=== PATIENT | female | born 1965 | race Asian ===

== ENCOUNTER 2018-08-29 10:08 | Emergency (ER) | payer BC ==
[~2018-08-29] VITALS: Ht 160 cm; Wt 65.9 kg
[2018-08-29 10:19] VITALS: Ht 160 cm; Wt 65.9 kg
[2018-08-29] MEDS ORDERED: DIPHENHYDRAMINE 50 MG INJ IV STA (10:19)
[2018-08-29] MEDS ORDERED: SOD CHLORIDE 0.9% 500 ML IV STA (10:19)
[2018-08-29] MEDS ORDERED: ONDANSETRON 4 MG INJ IV STA (10:19)
[2018-08-29] MEDS ORDERED: MECL-77 PO (11:28)
[2018-08-29] MEDS ORDERED: ONDA4TAB8 PO (11:28)
--- NOTE | 2018-08-29 11:31 | ERD ---
ER Documentation Chief Complaint Chief Complaint weak, dizzy & syncope this am HPI 53-year-old female presents the emergency department by paramedics complaining of dizziness and nausea. Patient was in her usual state of health until this morning at which time she awoke with vertiginous dizziness. She reported no headache, focal weakness or numbness or difficulty speaking. The dizziness made her significantly nauseous. She was unable to stand and called the paramedics. I have reviewed the realtime court reporter pre-hospital care. Pre-hospital vital signs were reviewed. Pre-hospital diagnostic tests were reviewed. Upon arrival, patient has no acute complaints at this time. ROS All systems reviewed and are negative except as per history of present illness. Medications Home Meds Active Scripts Ondansetron Hcl* (Zofran*) 4 Mg Tablet, 4 MG PO Q8H PRN for NAUSEA AND/OR VOMITING, #30 TAB Prov:GREGORIO TOBIN 08/29/18 Meclizine Hcl* (Meclizine Hcl*) 25 Mg Tablet, 25 MG PO Q8H PRN for DIZZINESS, #20 TAB Prov:GREGORIO TOBIN 08/29/18 Allergies Allergies: Coded Allergies: No Known Allergy (Unverified , 08/29/18) PMhx/Soc Medical and Surgical Hx: pt denies Medical Hx, pt denies Surgical Hx Hx Alcohol Use: No Hx Substance Use: No Hx Tobacco Use: No Smoking Status: Never smoker FmHx Noncontributory for chief complaint Physical Exam Vitals Vital Signs Date Temp Pulse Resp B/P (MAP) Pulse Ox O2 O2 Flow FiO2 Time Delivery Rate 08/29/18 69 18 147/77 99 Room Air 11:00 (100) 08/29/18 97.9 64 19 179/83 97 10:19 (115) Physical Exam GENERAL: The patient is well developed and appropriate for usual state of health in no apparent distress HEENT: Pupils equal, round, and reactive to light. EOMI. There is no scleral icterus. NECK: C-spine is soft and supple, there is no meningismus. There is no cervical lymphadenopathy. LUNGS: Clear to auscultation bilaterally. There are no rales, wheezes or rhonch i. HEART: Regular rate and rhythm, no murmurs, clicks, rubs or gallops. ABDOMEN: Soft, non-tender, non-distended. There are bowel sounds in all four quadrants. No rebound or guarding. EXTREMITIES: There is no peripheral cyanosis or edema. No focal swelling or erythema. NEURO: The patient moves all four extremities with 5/5 strength. Cranial nerves II - XII are intact. Normal gait. Alert and oriented. Finger to nose is normal bilaterally SKIN: There is no apparent rash or petechiae. HEME/LYMPHATIC: There is no evidence of excessive bruising or lymphedema. PSYCHIATRIC: The patient does not appear anxious or depressed. Result Diagram: 08/29/18 1025 08/29/18 1025 Results 24 hrs Laboratory Tests Test 08/29/18 10:15 08/29/18 10:25 Bedside Glucose 117 mg/dL White Blood Count 9.3 10^3/ul Red Blood Count 5.10 10^6/ul Hemoglobin 14.7 g/dl Hematocrit 44.8 % Mean Corpuscular Volume 87.8 fl Mean Corpuscular Hemoglobin 28.8 pg Mean Corpuscular Hemoglobin Concent 32.8 g/dl Red Cell Distribution Width 11.8 % Platelet Count 239 10^3/UL Mean Platelet Volume 10.3 fl Immature Granulocytes % 0.200 % Neutrophils % 81.8 % Lymphocytes % 12.8 % Monocytes % 4.1 % Eosinophils % 0.9 % Basophils % 0.2 % Nucleated Red Blood Cells % 0.0 /100WBC Immature Granulocytes # 0.020 10^3/ul Neutrophils # 7.6 10^3/ul Lymphocytes # 1.2 10^3/ul Monocytes # 0.4 10^3/ul Eosinophils # 0.1 10^3/ul Basophils # 0.0 10^3/ul Nucleated Red Blood Cells # 0.0 10^3/ul Sodium Level 141 mmol/L Potassium Level 3.8 mmol/L Chloride Level 105 mmol/L Carbon Dioxide Level 28 mmol/L Anion Gap 8 Blood Urea Nitrogen 13 mg/dl Creatinine 0.46 mg/dl Est Glomerular Filtrat Rate mL/min > 60 mL/min Glucose Level 124 mg/dl Calcium Level 9.8 mg/dl Troponin I < 0.012 ng/ml Current Medications Medications Dose Sig/Kimmy Start Time Status Last (Trade) Ordered Route PRN Stop Time Admin Dose Reason Admin Sodium 500 ml @ Q1H STAT 08/29/18 DC 08/29/18 Chloride 500 mls/hr IV 10: 10:24 08/29/18 11:18 Ondansetron 4 mg ONCE STAT 08/29/18 DC 08/29/18 HCl (Zofran IV 10: 10:24 Inj) 08/29/18 10:21 25 mg ONCE STAT 08/29/18 DC 08/29/18 Diphenhydrami IV 10: 10:24 ne HCl 08/29/18 10:21 (Benadryl) Procedures/MDM Patient was taken to a room, seen and evaluated. Comfort measures were initiated. Diagnostic tests were ordered and reviewed. 3 LEAD RHYTHM STRIP: Normal sinus rhythm without ectopy Rheumatic EK lead EKG reviewed by myself: Normal Sinus Rhythm Normal [place] and intervals No ST elevation, depression, or T wave inversion Impression: Normal EKG RADIOLOGY: Reviewed with the radiologist REEVALUATION: Patient symptoms have improved. She is remained neurologically normal. MEDICAL DECISION MAKIN-year-old female resents the emergency department with vertigo. At this time diagnostic evaluation as well as overall critical presentation is consistent with a peripheral vertigo. Patient at this time shows no evidence of significant dehydration, cardiac concerns, ischemia or other high-risk issues and seems appropriate for outpatient care. Departure Diagnosis: Primary Impression: Vertigo Condition: Stable Patient Instructions: Vertigo, Unspecified Additional Instructions: See your doctor for follow-up as discussed. Take a copy of your test results, if appropriate, to this follow-up visit. See your doctor or return here if your symptoms do not improve as expected. At any time, please return to the emergency department for any change or worsening in her symptoms. GREGORIO TOBIN Aug 29, 2018 11:31
[2018-08-29 11:53] VITALS: BP 142/76; PULSE 67; RESP 18
== END 2018-08-29 11:54 | disposition home or self-care (01) ==
LOC: E/R 10:08
DX: R42 Dizziness and giddiness (principal); R40.2142 Coma scale, eyes open, spontaneous, at arrival to emergency department; R40.2362 Coma scale, best motor response, obeys commands, at arrival to emergency department; R40.2252 Coma scale, best verbal response, oriented, at arrival to emergency department
CPT/HCPCS: 36415; 70450; 71045; 80048; 82962; 84484; 85025; 96361; 96374; 96375; 99285; J1200; J2405; J7040; Z7610